=== PATIENT | female | born 1955 | race Two or more races ===

== ENCOUNTER 2018-11-26 10:22 | Outpatient (CLI) | payer MEDICARE, MEDICAID ==
[~2018-11-26] VITALS: Ht 154.9 cm; Wt 59.9 kg
[2018-11-26] MEDS ORDERED: HYDROXYZINE HCL25 M1 PO (12:13)
[2018-11-26] MEDS ORDERED: METOPROLOL SUCC25 MG ORAL (12:13)
[2018-11-26 12:14] VITALS: BP 122/73
--- NOTE | 2018-11-26 19:30 | Consultation ---
DATE OF CONSULTATION: 11/26/2018 CONSULTING PHYSICIAN: Rivera Mortensen M.D. CHIEF COMPLAINT: Dysphagia. HISTORY OF PRESENT ILLNESS: This is a pleasant 63-year-old female with history of depression, hypertension, ataxia presented to our office complained of 2 years progressive weight loss of 20 pounds, dysphagia with liquids. Denies any nausea or vomiting. Denies any odynophagia. Denies any melena. Denies any hematochezia. No diarrhea. No constipation. No acid reflux symptoms. Apparently, the patient had a colonoscopy 9 years ago per family and it was normal. She was told the next one will be 10 years. PAST MEDICAL HISTORY: 1. Depression. 2. Ataxia. 3. Hypertension. PAST SURGICAL HISTORY: None. MEDICATIONS: She is on metoprolol and Atarax. FAMILY HISTORY: Noncontributory. SOCIAL HISTORY: The patient denies any tobacco, alcohol, or illicit drug use. ALLERGIES: No known drug allergies. REVIEW OF SYSTEMS: Positive for basically weight loss and dysphagia to the liquids. PHYSICAL EXAMINATION: VITAL SIGNS: Temperature 98.4, blood pressure is 122/73, pulse is 111, 320. HEENT: Normocephalic and atraumatic. Sclerae anicteric. NECK: Supple. No evidence of obvious lymphadenopathy. CARDIOVASCULAR: Regular rate and rhythm. Plus S1 and S2. No obvious murmur. LUNGS: Clear to auscultation bilaterally. ABDOMEN: Positive bowel sounds. Soft and nontender. No rebound. No guarding. No peritoneal sign. EXTREMITIES: No cyanosis. No clubbing. No edema. ASSESSMENT AND PLAN: This is a 63-year-old female with dysphagia to liquids and also 20 pounds of weight loss. The patient definitely needs an endoscopy. She was also offered colonoscopy, but the family they want to wait until 10 years, so another year. We respect their wishes. Plan will be to do an endoscopy. If the endoscopy is nondiagnostic, the patient will benefit from a hardy CT to evaluate for 20 pounds of weight loss. On the procedure day, we are also going to evaluate for thyroids and other labs. I want to thank Dr. Gonsalo Butt for this kind referral. Rivera Ilia Mortensen DR: JADA JOB#: [id number] CC: Gonsalo Butt M.D.; Fax#: [phone]
[2018-12-03] MEDS ORDERED: ADALAT10 MG ORAL (12:00)
== END 2018-11-26 12:22 | disposition home or self-care (01) ==
LOC: PAN 10:22
DX: R13.10 Dysphagia, unspecified (principal); F32.9 Major depressive disorder, single episode, unspecified; I10 Essential (primary) hypertension; R27.0 Ataxia, unspecified; R63.4 Abnormal weight loss
CPT/HCPCS: 99202

== ENCOUNTER 2019-01-10 08:30 | Day surgery (SDC) | payer MEDICARE, MEDICAID ==
[~2019-01-10] VITALS: Ht 160 cm; Wt 63.5 kg
[2019-01-10] VITALS (10 sets, daily range): BP systolic 116–149; BP diastolic 65–85
[~2019-01-10 08:30] MED LIST: ADALAT10 MG ORAL; HYDROXYZINE HCL25 M1 PO; LR 1000ml 1,000 ML IVLG SCH; METOPROLOL SUCC25 MG ORAL
--- NOTE | 2019-01-10 10:44 | Pre-Procedure Note/Attestation ---
Pre-Procedure Note/Attestation Complete Prior to Procedure Planned Procedure: not applicable Procedure Narrative: colonoscopy Indications for Procedure Pre-Operative Diagnosis: screening Attestation I attest that I discussed the nature of the procedure; its benefits; risks and complications; and alternatives (and the risks and benefits of such alternatives ), prior to the procedure, with the patient (or the patient's legal statement services representative). I attest that, if there was a reasonable possibility of needing a blood transfusion, the patient (or the patient's legal statement services representative) was given the [facility] standardized written summary, pursuant to the [place] Blood Safety Act ([place] Health and Safety Code # 1645, as amended). I attest that I re-evaluated the patient just prior to the surgery and that there has been no change in the patient's H&P, except as documented below: Rivera Mortensen MD Jan 10, 2019 10:44
--- NOTE | 2019-01-10 10:44 | Short Stay Surgery H&P ---
History of Present Illness History of Present Illness Chief Complaint see office note HPI Yamini Hawk is a 63 year old female who was admitted on for Screening Patient History Allergies: Coded Allergies: No Known Allergies (Unverified , 11/26/18) Medication History Scheduled Metoprolol Succinate* (Metoprolol Succinate*), Unknown Dose ORAL DAILY, ( Reported) Discontinued Medications Nifedipine (Nifedipine*), 10 MG ORAL DAILY, (Reported) Discontinued Reason: Pt stopped taking med Physical Exam Vital Signs Last Vital Signs Date Time Temp Pulse Resp B/P (MAP) Pulse Ox O2 Delivery O2 Flow Rate FiO2 01/10/19 10:06 97.6 106 20 149/80 99 Room Air Plan Attestation Are the patient's medical conditions optimized for surgery? Rivera Mortensen MD Jan 10, 2019 10:44
[2019-01-10] MEDS ORDERED: Lidocaine 1% MPF 10mg/ml 5ml ONE (11:05)
[2019-01-10] MEDS ORDERED: LR 1000ml ONE (11:05)
[2019-01-10] MEDS ORDERED: Esmolol 100mg/10ml Inj ONE (11:05)
[2019-01-10] MEDS ORDERED: Propofol 200mg/20ml IV ONE (11:05)
--- NOTE | 2019-01-10 11:07 | Short Stay Surgery H&P ---
History of Present Illness History of Present Illness Chief Complaint screening colon HPI Yamini Hawk is a 63 year old female who was admitted on for Screening Patient History Allergies: Coded Allergies: No Known Allergies (Unverified , 11/26/18) PAST MEDICAL HISTORY: (1) HTN (hypertension) (2) Anxiety (3) Depression Medication History Scheduled Metoprolol Succinate* (Metoprolol Succinate*), Unknown Dose ORAL DAILY, ( Reported) Discontinued Medications Nifedipine (Nifedipine*), 10 MG ORAL DAILY, (Reported) Discontinued Reason: Pt stopped taking med Review of Systems Cardiovascular: Reports: no symptoms Respiratory: Reports: no symptoms Skeletal: Reports: no symptoms Gastrointestinal: Reports: no symptoms Genitourinary: Reports: no symptoms Neurologic: Reports: no symptoms Endocrine: Reports: no symptoms Hematologic: Reports: no symptoms Physical Exam Vital Signs Last Vital Signs Date Time Temp Pulse Resp B/P (MAP) Pulse Ox O2 Delivery O2 Flow Rate FiO2 01/10/19 10:06 97.6 106 20 149/80 99 Room Air Skin: normal HENT: normal Heart: normal Lungs: normal Abdomen: normal Extremities: normal Plan Plan of Care colonoscopy Attestation Are the patient's medical conditions optimized for surgery? Attestation Response: yes Rivera Mortensen MD Jan 10, 2019 11:07
--- NOTE | 2019-01-10 11:26 | Anethesia Preoperative Eval ---
Anesthesia Pre-op PMH/ROS General Date of Evaluation: Jan 10, 2019 Time of Evaluation: 11:05 Anesthesiologist: connor ASA Score: ASA 3 Mallampati Score Class I : Soft palate, uvula, fauces, pillars visible Class II: Soft palate, uvula, fauces visible Class III: Soft palate, base of uvula visible Class IV: Only hard plate visible Mallampati Classification: Class II Surgeon: Festus Diagnosis: screening Surgical Procedure: Colonoscopy Family History: no anesthesia problems Allergies: Coded Allergies: No Known Allergies (Unverified , 11/26/18) Medications: see eMAR Patient NPO?: Yes NPO Date: Jan 10, 2019 NPO Time: 00:01 Past Medical History Cardiovascular: Reports: HTN Pulmonary: Denies: asthma, COPD, VICKIE, other Gastrointestinal/Genitourinary: Denies: GERD, CRI, ESRD, other Neurologic/Psychiatric: Reports: CVA - weakness and difficulty with speech Endocrine: Denies: DM, hypothyroidism, steroids, other HEENT: Denies: cataract (L), cataract (R), glaucoma, [place] (L), [place] (R), other PSxH Narrative: unknown Anesthesia Pre-op Phys. Exam Physician Exam Last Vital Signs Date Time Temp Pulse Resp B/P (MAP) Pulse Ox O2 Delivery O2 Flow Rate FiO2 01/10/19 10:06 97.6 106 20 149/80 99 Room Air Constitutional: NAD Neurologic: CN 2-12 intact Cardiovascular: RRR Respiratory: CTA Gastrointestinal: S/NT/ND Airway Exam Mallampati Classification 2 Mallampati Score: Class II MO: full ROM: full Dentures: no upper, no lower Anesthesia Pre-op A/P Studies Pre-op Studies: EKG - ST - had already taken metroprolol Risk Assessment & Plan Assessment: Bolused fluid; ST- perhaps due to GI prep and NPO status; spoke with ; [facility]; denies changes Plan: MAC Status Change Before Surgery: No Pre-Antibiotics Drug: declined Tigist Arreola CRNA Jan 10, 2019 11:26
--- NOTE | 2019-01-10 11:29 | Endoscopy Procedure Note ---
Endoscopy Procedure Note General Indication for Procedure: screening Procedures Performed: colonoscopy Operative Findings/Diagnosis: TI ulcers Specimen: yes Pt Tolerated Procedure Well: Yes Estimated Blood Loss: none Anesthesia Anesthesiologist: birdie Anesthesia: MAC Inserted Devices Implant(s) used?: No Quality Quality of Bowel Preparation: Good Did scope reach the cecum?: Yes Was there any complications?: No GI Core Measures 50 yrs or older w/o bx or poly: No 10yrs. F/U recommended: Yes If not recommended, why?: Above average risk 18 years or older w/prev. colo: No Rivera Mortensen MD Jan 10, 2019 11:29
--- NOTE | 2019-01-10 11:40 | Immediate Post-Op Evaluation ---
Immediate Post-Op Evalulation Immediate Post-Op Evalulation Procedure: colonoscopy Date of Evaluation: Jan 10, 2019 Time of Evaluation: 11:40 IV Fluids: 1000 Blood Pressure Systolic: 116 Blood Pressure Diastolic: 85 Pulse Rate: 105 Respiratory Rate: 14 O2 Sat by Pulse Oximetry: 100 Temperature (Fahrenheit): 98.5 Nausea: No Vomiting: No Patient Status: awake, reacts, patent Hydration Status: adequate Drug: declined Tigist Arreola CRNA Jan 10, 2019 11:40
--- NOTE | 2019-01-10 13:35 | 48 Hour Post Anesthesia Eval ---
Post Anesthesia Evaluation Procedure: colonoscopy Date of Evaluation: Jan 10, 2019 Time of Evaluation: 13:34 Blood Pressure Systolic: 133 0: 70 Pulse Rate: 104 Respiratory Rate: 14 O2 Sat by Pulse Oximetry: 98 Airway: patent Nausea: No Vomiting: No Hydration Status: adequate Cardiopulmonary Status: stable Mental Status/LOC: patient returned to baseline Post-Anesthesia Complications: none Follow-up care needed: N/A Tigist Arreola CRNA Jan 10, 2019 13:35
--- NOTE | 2019-01-10 17:45 | Procedure Note ---
DATE OF PROCEDURE: 01/10/2019 SURGEON: Rivera Mortensen M.D. PROCEDURE: Colonoscopy with biopsy. ANESTHESIA: Per EDGER MACHINE SETTER, Tigist Arreola. INSTRUMENT: Olympus adult flexible colonoscope. REASON FOR PROCEDURE: The procedure, risks, benefits, and possible consequences, including hemorrhage, aspiration, perforation and infection, and alternative treatments, were explained to the patient/legal guardian by Dr. Rivera Mortensen and the patient/legal guardian understood and accepted these risks. INDICATION: Screening colonoscopy. PROCEDURE IN DETAIL: After informed consent was obtained and the patient was adequately sedated, first rectal exam was performed, which was positive for internal hemorrhoids. Then, the scope was advanced from the rectum into the cecum and subsequently terminal ileum. Quality of prep overall was good except for the cecum. Examination of the cecum was limited. The terminal ileum had multiple ulcerations. These ulcerations some of them were deep. Biopsy from the terminal ileum was obtained for diagnosis. At this time, the scope was pulled back into the colon. Examination of colon showed no obvious polyp. No mass. One single diverticula seen in the right colon. Retroflexion of the rectum showed evidence of internal hemorrhoids. SUMMARY OF FINDINGS: 1. Multiple terminal ileum ulcerations, status post biopsy. 2. Small internal hemorrhoids. RECOMMENDATIONS: Follow up biopsy results and treat accordingly. Rivera Mortensen M.D. DR: JADA JOB#: [id number] CC:
== END 2019-01-10 13:00 | disposition home or self-care (01) ==
LOC: GAS 08:30
DX: Z12.11 Encounter for screening for malignant neoplasm of colon (principal); K64.8 Other hemorrhoids; K63.3 Ulcer of intestine; I10 Essential (primary) hypertension; F41.9 Anxiety disorder, unspecified; F32.9 Major depressive disorder, single episode, unspecified; Z86.73 Personal history of transient ischemic attack (TIA), and cerebral infarction without residual deficits
CPT/HCPCS: 45380; 93005; J2704; J7120; 94003; 94150

== ENCOUNTER 2019-02-04 09:59 | Outpatient (CLI) | payer MEDICARE, MEDICAID ==
[~2019-02-04 09:59] MED LIST changes: -LR 1000ml 1,000 ML IVLG SCH
--- NOTE | 2019-02-04 10:21 | General Progress Note ---
Assessment/Plan Problem List: (1) Anxiety ICD Codes: F41.9 - Anxiety disorder, unspecified SNOMED: 41121491 (2) Depression ICD Codes: F32.9 - Major depressive disorder, single episode, unspecified SNOMED: 76118435 (3) HTN (hypertension) ICD Codes: I10 - Essential (primary) hypertension SNOMED: 81208857 Assessment/Plan: s/p colonoscopy: SUMMARY OF FINDINGS: 1. Multiple terminal ileum ulcerations, status post biopsy. 2. Small internal hemorrhoids. IBD panel iron panel CBC ESR/CRP may need capsule endoscopy RTC 2 weeks Subjective Allergies: Coded Allergies: No Known Allergies (Unverified , 11/26/18) Objective General Appearance: alert EENT: normal ENT inspection Neck: supple Cardiovascular: normal rate Respiratory/Chest: decreased breath sounds Abdomen: normal bowel sounds, non tender, soft Extremities: non-tender Rivera Mortensen MD Feb 04, 2019 10:21
[2019-02-04 15:26] VITALS: BP 127/77
== END 2019-02-04 11:59 | disposition home or self-care (01) ==
LOC: PAN 09:59
DX: F41.9 Anxiety disorder, unspecified (principal); F32.9 Major depressive disorder, single episode, unspecified; I10 Essential (primary) hypertension; K64.8 Other hemorrhoids